=== PATIENT | male | born 1980 | race Caucasian/White ===

== ENCOUNTER 2020-07-22 15:34 | Emergency (ER) | payer OTHER ==
[~2020-07-22] VITALS: Ht 172.7 cm; Wt 91.0 kg
[2020-07-22 16:37] VITALS: BP 138/87
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
== END 2020-07-22 18:12 | disposition home or self-care (01) ==
LOC: ER 15:34
DX: S06.0X0A Concussion without loss of consciousness, initial encounter (principal); M54.2 Cervicalgia; R42 Dizziness and giddiness; M54.5 Low back pain; M54.6 Pain in thoracic spine; J45.909 Unspecified asthma, uncomplicated; Z87.891 Personal history of nicotine dependence; Z88.0 Allergy status to penicillin; V49.49XA Driver injured in collision with other motor vehicles in traffic accident, initial encounter; Y92.488 Other paved roadways as the place of occurrence of the external cause; Y93.89 Activity, other specified; Y99.8 Other external cause status
CPT/HCPCS: 70450; 72125; 99285-25